=== PATIENT | female | born 1945 | race Caucasian/White ===

== ENCOUNTER 2019-07-22 08:33 | Outpatient (CLI) | payer MEDICARE, SELFPAY ==
--- NOTE | ~2019-07-22 | MM_ITS ---
EXAMINATION: MM screening mehreen BI w nathan HISTORY: Screening mammogram, history of right breast cancer TECHNIQUE: Craniocaudal and mediolateral oblique 3-D tomosynthesis images were obtained and synthetic 2-D images were generated. CAD analysis was submitted and interpreted. COMPARISON: 07/15/2018, 06/25/2017, 05/23/2013 BREAST PARENCHYMAL COMPOSITION: There are scattered areas of fibroglandular density. FINDINGS: Stable lumpectomy changes are noted in the right breast. There is no evidence of suspicious mass, calcification, or architectural distortion to suggest malignancy in either breast. There has b een no suspicious interval change. IMPRESSION: 1. No mammographic evidence of malignancy. 2. Recommend routine screening mammography in one year. BI-RADS Category 2: Benign finding(s). Reviewed, dictated and finalized at location A.
== END 2019-07-22 08:34 | disposition home or self-care (01) ==
PROVIDERS: PCP Family Medicine; Visit Provider Obstetrics & Gynecology
DX: Z12.31 Encounter for screening mammogram for malignant neoplasm of breast (principal)
CPT/HCPCS: 77063; 77067

== ENCOUNTER 2019-11-13 06:53 | Outpatient (NON) | payer MEDICARE, SELFPAY ==
[2019-11-13 20:23] LABS: SARS-CoV-2 RNA PCR Positive
== END 2019-11-13 06:54 ==
PROVIDERS: PCP Family Medicine; Visit Provider Family Medicine
DX: U07.1 COVID-19 (principal)
CPT/HCPCS: 87635; C9803; U0003

== ENCOUNTER → 2020-08-17 10:15 | Outpatient (REF) | payer MEDICARE, SELFPAY | LOC: ANHLAB 10:15 | PROVIDERS: PCP Family Medicine; Visit Provider Nurse Practitioner | DX: D22.71 Melanocytic nevi of right lower limb, including hip (principal) | CPT/HCPCS: 88305 ==

== ENCOUNTER 2020-08-31 08:49 | Outpatient (CLI) | payer MEDICARE, SELFPAY ==
--- NOTE | ~2020-08-31 | MM_ITS ---
EXAMINATION: MM screening mehreen BI w nathan HISTORY: Screening mammogram TECHNIQUE: Craniocaudal and mediolateral oblique 3-D tomosynthesis images were obtained and synthetic 2-D images were generated. CAD analysis was submitted and interpreted. COMPARISON: 07/22/2019, 07/15/2018, 06/25/2017 bilateral digital screening mammogram examinations BREAST PARENCHYMAL COMPOSITION: There are scattered areas of fibroglandular density. FINDINGS: There is stable right breast volume loss and postsurgical scarring and calcified fat necros is in the upper outer quadrant post right partial mastectomy for breast cancer in the according to the clinical history. There is no evidence of suspicious mass, calcification, or architectural di stortion to suggest malignancy in either breast. There has been no suspicious interval change. IMPRESSION: 1. No mammographic evidence of malignancy. 2. Recommend routine screening mammography in one year. BI-RADS Category 2: Benign finding(s). Reviewed, dictated and finalized at location A.
== END 2020-08-31 08:50 | disposition home or self-care (01) ==
LOC: ANHIMG 08:53
PROVIDERS: PCP Family Medicine; Visit Provider Family Medicine
DX: Z12.31 Encounter for screening mammogram for malignant neoplasm of breast (principal)
CPT/HCPCS: 77063; 77067

== ENCOUNTER 2021-02-25 11:08 | Outpatient (CLI) | payer MEDICARE, SELFPAY ==
[2021-02-25 11:30] LABS: Basophils Absolute Auto 0.1 K/mm3 (0.0-0.1); Basophils Percent Auto 0.8 % (0.2-1.2); Eosinophils Absolute Auto 0.1 K/mm3 (0-0.3); Eosinophils Percent Auto 1.8 % (0-4.4); Hematocrit 31.9 % (37.0-47.0); Hemoglobin 9.7 g/dL (12.0-15.0); Immature Granulocyte Absolute 0.02 K/mm3 (0.00-0.031); Immature Granulocyte Percent A 0.3 % (0-0.5); Lymphocytes Absolute Auto 1.41 K/mm3 (0.9-3.2); Lymphocytes Percent Auto 19.6 % (18.3-44.2); Mean Corpuscular HGB Conc 30.4 g/dl (32-36); Mean Corpuscular Hemoglobin 33.7 pg (26-34); Mean Corpuscular Volume 110.8 fl (80-100); Mean Platelet Volume 9.7 fl (7.4-10.4); Monocytes Absolute Auto 0.3 K/mm3 (0.1-0.6); Monocytes Percent Auto 4.2 % (2.6-8.5); Neutrophils Absolute Auto 5.3 K/mm3 (1.3-6.7); Neutrophils Percent Auto 73.3 % (45.5-73.1); Platelet Count Result 311 k/mm3 (150-375); Red Blood Count 2.88 M/mm3 (4.2-5.4); Red Cell Distribution Width 15.1 % (11.5-14.5); White Blood Count 7.2 K/mm3 (4.5-10.0)
[2021-02-25 16:33] LABS: Iron 104 ug/dL (37-170)
[2021-02-25 16:37] LABS: Alanine Aminotransferase 18 U/L (4-35); Albumin Level 4.2 g/dL (3.5-5.1); Alkaline Phosphatase 95 U/L (38-126); Anion Gap 9 mmol/L (8-16); Aspartate Amino Transferase 33 U/L (14-36); Bilirubin,Total 0.4 mg/dL (0.2-1.3); Blood Urea Nitrogen 35 mg/dL (7-17); Calcium 8.9 mg/dL (8.4-10.2); Carbon Dioxide 21 mmol/L (22-30); Chloride 107 mmol/L (98-107); Estimated Glomerular Filt Rate 22; Glucose 90 mg/dL (65-110); Potassium 5.1 mmol/L (3.4-5.0); Sodium 137 mmol/L (137-145)
[2021-02-25 16:43] LABS: Percent Iron Saturation 25 % (20-50)
[2021-02-26 12:20] LABS: Folic Acid 8.6 ng/mL (2.76->20)
== END 2021-02-25 11:09 | disposition home or self-care (01) ==
PROVIDERS: PCP Internal Medicine; Visit Provider Internal Medicine Hematology & Oncology
DX: D64.9 Anemia, unspecified (principal)
CPT/HCPCS: 36415; 80053; 82607; 82728; 82746; 83540; 83550; 85025

== ENCOUNTER 2021-03-01 08:02 | Outpatient (CLI) | payer MEDICARE, SELFPAY ==
--- NOTE | ~2021-03-01 | CT_ITS ---
EXAMINATION: CT brain wo con DATE: 03/01/2021 08:16 INDICATION: Left occipital continuous headache for one week TECHNIQUE: Computed tomography (CT) of the head was performed without intravenous contrast. The mA wa s adjusted according to patient size. Iterative reconstruction technique was employed. Exam dose: 60 5.33 mGy-cm total exam DLP. COMPARISON: None FINDINGS: Bilateral carotid siphon and supraclinoid internal carotid artery calcifications. There is nonspecific diminished attenuation of the subcortical and periventricular cerebral white matter, like ly due to chronic small vessel ischemic changes. There is moderate cerebral volume loss predominating in the frontal regions. No intracranial mass lesion or hemorrhage or cerebrovascular accident, midline shift or mass effect i s detected. There is no subdural or epidural hematoma. The orbital contents are unremarkable. There is a fluid level of the right maxillary sinus. The mastoid air cells and paranasal sinuses othe rwise appear unremarkable. No fracture or bone destruction of the cranial vault. IMPRESSION: Fluid level right maxillary sinus consistent with right maxillary sinusitis Cerebral atherosclerosis and chronic small vessel ischemic changes of the cerebral white matter Reviewed, dictated and finalized at Location A. Reviewed, dictated and finalized at location B. ICES COORDINATOR IMPRESSION: Fluid level right maxillary sinus consistent with right maxillary sinusitis Cerebral atherosclerosis and chronic small vessel ischemic changes of the cereb ral white matter
== END 2021-03-01 08:03 | disposition home or self-care (01) ==
LOC: ANHIMG 08:05
PROVIDERS: PCP Internal Medicine; Visit Provider Nurse Practitioner
DX: R51.9 Headache, unspecified (principal); I67.2 Cerebral atherosclerosis
CPT/HCPCS: 70450

== ENCOUNTER 2021-03-30 14:26 | Emergency (ER) | payer MEDICARE, SELFPAY ==
--- NOTE | ~2021-03-30 | CT_ITS ---
EXAMINATION: CT lumbar spine wo con DATE: 03/30/2021 15:21 INDICATION: Low back pain radiating down the left leg. Fall. TECHNIQUE: Computed tomography (CT) of the lumbar spine was performed without intravenous contrast. A utomated exposure control and iterative reconstruction technique were employed. The dose-length produ ct was 1100.95 mGy-cm. COMPARISON: CT abdomen and pelvis 12/03/2010 FINDINGS: There are surgical changes of the stomach. There are changes of left nephrectomy. There is 14 degrees levoscoliosis of thoracolumbar spine. There is 3 mm anterolisthesis of L3 on L4 and 4 mm a nterolisthesis of L4 on L5. There is mild chronic anterior wedging of T12 and L1 vertebral bodies. Th ere is a hemangioma in T12 vertebral body. There is moderately decreased disc height at T12-L1 and L1 -L2 and severely decreased disc height from L2-L3 through L5-S1. The following disc levels are specif ically discussed: L1-L2: The disc is bulging. There is moderate right and severe left facet joint osteoarthritis. There is mild right neural foraminal stenosis. There is no central canal stenosis. L2-L3: The disc is bulging. There is severe bilateral facet joint osteoarthritis. There is mild bilat eral neural foraminal stenosis. There is mild central canal stenosis. L3-L4: The disc is bulging. There is severe bilateral facet joint osteoarthritis. There is mild bilat eral neural foraminal stenosis. There is mild central canal stenosis. L4-L5: The disc is bulging. There is severe bilateral facet joint osteoarthritis. There is moderate r ight and mild left neural foraminal stenosis. There is mild central canal stenosis. L5-S1: Is bulging. There is severe bilateral facet joint osteoarthritis. There is mild bilateral neur al foraminal stenosis. There is no central canal stenosis. IMPRESSION: 1. No fracture. 2. Severe lumbar spondylosis. 3. Thoracolumbar levoscoliosis. Reviewed, dictated and finalized at location A. NSIONAL INTEGRATION ENGINEER
--- NOTE | ~2021-03-30 | XR_ITS ---
EXAMINATION: XR pelvis 1-2V DATE: 03/30/2021 14:59 INDICATION: Lower back pain post fall over suitcase TECHNIQUE: An anteroposterior view of the pelvis was obtained. COMPARISON: None. FINDINGS: Mild lumbar levoscoliosis with moderate spondylosis. No fractures. Mild osteoarthritis at the bilater al hip and sacroiliac joints. Cholecystectomy clips in right upper quadrant. Multiple additional surg ical clips in the left upper quadrant and at the right hemipelvis. Numerous metallic coils project ov er the central abdomen consistent with prior ventral hernia repair. IMPRESSION: 1. Mild lumbar levoscoliosis with moderate spondylosis. 2. Mild bilateral hip and sacroiliac osteoarthritis. No acute osseous abnormality. Reviewed, dictated and finalized at location A. GE MANAGEMENT CONSULTANT IMPRESSION: 1. Mild lumbar levoscoliosis with moderate spondylosis. 2. Mild bilateral hip and sacroiliac osteoarthritis. No acute osseous abnormali ty.
--- NOTE | ~2021-03-30 | XR_ITS ---
EXAMINATION: XR ribs LT 2V w CXR 2V DATE: 03/30/2021 14:59 INDICATION: Left rib pain. Fall. TECHNIQUE: Frontal and lateral views of the chest and 2 views on 3 radiographs of the left ribs were obtained. COMPARISON: Chest 2 views 07/22/2017 FINDINGS: CHEST TWO VIEWS: There is mild atelectasis in the lower lung zones. No pleural effusion or pneumothor ax. The heart size is normal. There is a small hiatal hernia. There are surgical clips in the abdomen . LEFT RIBS: There is no rib fracture. IMPRESSION: 1. No rib fracture. 2. Small hiatal hernia. Reviewed, dictated and finalized at location A. FORCING STEEL ERECTOR
[2021-03-30 14:37] VITALS: BP 192/106; PULSE 90; RESP 18; O2SAT 98
--- NOTE | 2021-03-30 15:43 | ED.GENADULT ---
HPI - General Adult General Chief complaint: Fall Stated complaint: fall Time Seen by Provider: 03/30/21 14:35 Source: patient and RN notes reviewed Mode of arrival: ambulatory Limitations: no limitations History of Present Illness HPI narrative: Patient is a 76-year-old female who presents per private vehicle to emergency department for evaluation of left lower back pain status post trip fall that occurred just prior to arrival patient tripped over a suitcase causing the injury she notes aching pain worse with activity and movement Related Data Home Medications Medication Instructions Recorded Confirmed acetaminophen 650 mg 650 mg PO Q8H 02/20/19 03/30/21 tablet,extended release allopurinol 100 mg tablet 100 mg PO DAILY 02/20/19 03/30/21 pravastatin 10 mg tablet 10 mg PO DAILY 02/20/19 03/30/21 naltrexone 50 mg tablet 4 mg PO DAILY tablet 02/09/21 03/30/21 isosorbide mononitrate 30 mg 30 mg PO DAILY 02/22/21 03/30/21 tablet,extended release 24 hr Allergies Allergy/AdvReac Type Severity Reaction Status Date / Time adhesive Allergy Unknown SKIN PEALS Verified 02/22/21 14:15 OFF clarithromycin AdvReac Nausea Verified 02/22/21 14:15 Review of Systems Review of Systems: All systems reviewed & are unremarkable except as noted in HPI and below PMFSH Past Medical History Medical History Acquired solitary kidney Breast cancer, right History of atypical nevus History of COVID-19 IBS (irritable bowel syndrome) Kidney malignancy Melanoma Restless legs syndrome (RLS) Surgical History Surgical History H/O left nephrectomy H/O umbilical hernia repair History of cholecystectomy History of hysterectomy History of lumpectomy of right breast History of repair of rotator cuff History of Bin-en-Y gastric bypass History of total knee arthroplasty Family History Family History Father Hypertension ALS (amyotrophic lateral sclerosis) History of AAA (abdominal aortic aneurysm) repair Mother Family history of malignant neoplasm of kidney Other Family history of malignant neoplasm Social History Social History Second hand tobacco smoke exposure: No Alcohol intake: never Substance use: never Substance use type: does not use Gender identity (if verbalized by the patient): Female Exam Narrative: GENERAL: Well-appearing, well-nourished, and in no acute distress. HEAD: Normocephalic, atraumatic. EYES: PERRLA and EOMI. ENT: Nares clear, no rhinorrhea or epistaxis. Mucous membranes moist. NECK: Supple. No adenopathy or masses. CHEST: Clear to auscultation. No respiratory distress. No wheezes rales or rhonchi HEART: Regular rate and rhythm. No murmur heard. Normal peripheral pulses. EXTREMITIES: Normal range of motion. No edema. Tenderness of the left lower lumbar paraspinal region no bruising or deformities noted slight midline tenderness as well in the lumbar region no cervical thoracic tenderness SKIN: Warm, dry, no rash. NEURO: No focal deficits. Alert and oriented x3. Cranial nerves II through XII grossly intact. Normal speech and gait PSYCH: Normal mood and affect. Course Course Emergency Course: Patient in the room in no distress aware of case findings treatment plan and diagnosis felt appropriate for outpatient reevaluation nontoxic-appearing. ABCs and vital signs intact stable she was made aware of her x-ray findings and given reasons for outpatient follow-up and indications for strict return Vital Signs Vital signs: Vital Signs Pulse Rate 90 03/30/21 14:37 Respiratory Rate 03/30/21 14:37 Blood Pressure 192/106 H 03/30/21 14:37 Pulse Oximetry 98 03/30/21 14:37 Pulse Rate 90 03/30/21 14:37 Respiratory Rate 18 03/30/21 14:37 Blood
[2021-03-30 16:15] VITALS: RESP 18; O2SAT 98
== END 2021-03-30 16:16 | disposition home or self-care (01) ==
PROVIDERS: Emergency Provider Emergency Medicine; PCP Internal Medicine
DX: M54.50 Low back pain, unspecified (principal); Z90.5 Acquired absence of kidney; G25.81 Restless legs syndrome; Z86.16 Personal history of COVID-19
CPT/HCPCS: 71046; 71100; 72131; 72170; 96365; 96375; 99284; J1200; Q0138

== ENCOUNTER → 2021-07-01 14:51 | Outpatient (CLI) | payer MEDICARE, SELFPAY ==
--- NOTE | ~2021-07-01 | DEXA_ITS ---
Bone Density Report Name: HUNG URRUTIA Age: 76 Sex: Female Ethnicity: White Date of : 1945 Indication: osteopenia; monitoring treatment; height loss; hysterectomy; postmenopausal Referring Provider: LILLY CARLIN Study: Bone densitometry was performed. Exam Date: July 01, 2021 Accession number: [id number] Bone Density: Region BMD T-score Z-score Classification AP Spine (L1-L4) 1.009 -0.3 2.1 Normal Femoral Neck (Left) 0.553 -2.7 -0.6 Osteoporosis Total Hip (Left) 0.694 -2.0 -0.2 Osteopenia Femoral Neck (Right) 0.571 -2.5 -0.4 Osteoporosis Total Hip (Right) 0.748 -1.6 0.2 Osteopenia Total Hip Mean 0.721 -1.8 0.0 Osteopenia World Health Organization criteria for BMD impression classify patients as: Normal (T-score at or above -1.0), Osteopenia (T-score between -1.0 and -2.5), or Osteoporosis (T-score at or below -2.5). 10-year Fracture Risk: FRAX not reported because: Some T-score for Spine Total or Hip Total or Femoral Neck at or below -2.5 Treated for osteoporosis Previous Exams: Region Exam Age BMD T-score BMD Change BMD Change Date g/cm2 vs Baseline vs Previous AP Spine(L1-L4) 07/01/2021 76 1.009 -0.3 0.104* 0.104* 11/30/2017 72 0.905 -1.3 Total Hip(Left) 07/01/2021 76 0.694 -2.0 0.039* 0.039* 11/30/2017 72 0.656 -2.3 Total Hip(Right) 07/01/2021 76 0.748 -1.6 0.024 0.024 11/30/2017 72 0.724 -1.8 *Denotes significance at 95% confidence level, LSC for AP Spine = 0.022 g/cm2, LSC for Total Hip = 0.027 g/cm2 Clinical Information Provided by Patient: Is being treated for osteoporosis Has used the following medications: Prolia (i.e. denosumab), Vitamin D Has the following medical conditions: Hysterectomy, BR CA, RENAL CA Patient maximum height was 64 Menopause Age: 49 Does not regularly consume dairy products Drinks caffeinated beverages Onset of menses at age 10 Number of children 2 Impression: The patient has osteoporosis, based on the Left Femoral Neck T-score. No significant bone loss was observed. Discussion: PATIENT UNDER TREATMENT WITH NO SIGNIFICANT BMD LOSS SINCE LAST EXAM. In an untreated patient, BMD typically declines with age. A lack of decline or gain is usually a sign that treatment is efficacious and fracture risk is reduced. It is important to ask patients whether they are taking their medications and to encourage continued and appro
== END ==
PROVIDERS: PCP Obstetrics & Gynecology Gynecology; Visit Provider Obstetrics & Gynecology Gynecology
DX: Z78.0 Asymptomatic menopausal state (principal); M81.0 Age-related osteoporosis without current pathological fracture; M85.852 Other specified disorders of bone density and structure, left thigh; M85.851 Other specified disorders of bone density and structure, right thigh
CPT/HCPCS: 77080